=== PATIENT | male | born 1945 | race Caucasian/White ===

== ENCOUNTER → 2019-05-31 | Outpatient (CLI) | payer MEDICARE, BC, OTHER ==
--- NOTE | 2019-05-31 13:17 | 2DMMODE ---
[place] [address] 2 D/M-MODE ECHOCARDIOGRAM Name: JORDAN CASEY Room: [facility]#: [id number] Admission: 05/31/19 Attend Phys: Corrina Calle, Discharge: Date of : 47 Date of Service: 05/31/19 1316 Report #: [id number] THIS REPORT FOR: //name// APPROVED REPORT Study performed: 05/31/2019 10:05:24 EXAM: Comprehensive 2D, Doppler, and color-flow Echocardiogram Patient Location: Out-Patient BSA: 2.17 HR: 61 bpm BP: 98/52 mmHg Other Information Study Quality: Good Indications CAD Cardiomyopathy 2D Dimensions IVSd: 11.68 (7-11mm) LVOT Diam: 20.64 (18-24mm) LVDd: 57.21 mm PWd: 10.40 (7-11mm) Ascending Ao: 35.16 (22-36mm) LVDs: 42.87 (25-40mm) Aortic Root: 30.53 mm Volumes Left Atrial Volume (Systole) LA ESV Index: 35.30 mL/m2 Aortic Valve AoV Peak Brock.: 1.28 m/s AO Peak Gr.: 6.59 mmHg LVOT Max P.04 mmHg AO Mean Gr.: 4.08 mmHg LVOT Mean P.87 mmHg LVOT Max V: 1.01 m/s AO V2 VTI: 34.02 cm LVOT Mean V: 0.62 m/s LATRELL (VTI): 2.34 cm2 LVOT V1 VTI: 23.81 cm Mitral Valve E/A Ratio: 2.10 MV Decel. Time: 343.94 ms MV E Max Brock.: 0.60 m/s MV PHT: 99.74 [place] [address] 2 D/M-MODE ECHOCARDIOGRAM Name: JORDAN CASEY Room: [facility]#: [id number] Admission: 05/31/19 Attend Phys: Corrina Calle, Discharge: Date of : 47 Date of Service: 05/31/19 1316 Report #: [id number] MVA (PHT): 2.21 cm2 TDI E/Lateral E': 5.00 E/Medial E': 8.57 Medial E' Brock.: 0.07 m/s Lateral E' Brock.: 0.12 m/s Pulmonary Valve PV Peak Brock.: 1.02 m/s PV Peak Gr.: 4.17 mmHg Tricuspid Valve RAP Estimate: 5.00 mmHg TR Peak Gr.: 24.79 mmHg RVSP: 29.79 mmHg PA Pressure: 29.79 mmHg Left Ventricle Left ventricle is mildly dilated. There is normal left ventricular wall thickness. Left ventricular systolic function is moderately decreased. LVEF is 35%. The left ventricular diastolic function is normal. Right Ventricle The right ventricle is normal size. The right ventricular systolic function is normal. Atria The left atrium size is normal. The right atrium size is normal. Aortic Valve The aortic valve is normal in structure. No aortic regurgitation is present. There is no aortic valvular stenosis. Mitral Valve The mitral valve is normal in structure. Mild mitral regurgitation. No evidence of mitral valve stenosis. Tricuspid Valve The tricuspid valve is normal in structure. Mild tricuspid regurgitation. Pulmonic Valve The pulmonary valve is normal in structure. There is no pulmonic valvular regurgitation[place] [address] 2 D/M-MODE ECHOCARDIOGRAM Name: JORDAN CASEY Room: [facility]#: [id number] Admission: 05/31/19 Attend Phys: Corrina Calle, Discharge: Date of : 47 Date of Service: 05/31/19 1316 Report #: [id number] The aortic root is normal in size. IVC is normal in size and collapses >50% with inspiration. Pericardium There is no pericardial effusion. <Conclusion> Left ventricle is mildly dilated. There is normal left ventricular wall thickness. Left ventricular systolic function is moderately decreased. LVEF is 35%. The left ventricular diastolic function is normal. The right ventricle is normal size. The left atrium size is normal. The aortic valve is normal in structure. The mitral valve is normal in structure. Mild mitral regurgitation. The tricuspid valve is normal in structure. Mild tricuspid regurgitation. IVC is normal in size and collapses >50% with inspiration. <ELECTRONICALLY SIGNED> By: Gómez Kincaid MD, [facility] 05/31/19 1316 1316 1316 Gómez Kincaid MD, FACC /INF
== END ==
LOC: M.CRD 05-13 14:12
DX: I08.1 Rheumatic disorders of both mitral and tricuspid valves (principal); I25.10 Atherosclerotic heart disease of native coronary artery without angina pectoris; I25.5 Ischemic cardiomyopathy; I50.22 Chronic systolic (congestive) heart failure; I49.3 Ventricular premature depolarization

== ENCOUNTER → 2019-06-18 | Outpatient (CLI) | payer BC, MEDICARE, OTHER ==
--- NOTE | 2019-06-18 17:20 | CARDNUC ---
[place] [address] CARDIAC NUCLEAR IMAGING REPORT Name: JORDAN CASEY Room: [facility]#: [id number] Admission: 06/18/19 Attend Phys: Pedro Green, Discharge: Date of : 47 Date of Service: 06/18/19 1719 Report #: [id number] THIS REPORT FOR: //name// APPROVED REPORT Imaging Protocol: Rest Tc-99m/Stress Tc-99m 1 day Study performed: 06/18/2019 13:27:15 Indication: Dyspnea Patient Location: Out-Patient Stress Tech: Annemarie Callahan Stress Nurse: Susie Canchola RN NM Tech:SHRUTI Michael Ht: 5 ft 10 in Wt: 212 lbs BSA: 2.14 m2 BMI: 30.41 Medical History Medical History: CHF, ICM Medications: ASA, statin, coreg, zetia, lasix, NTG, entresto, aldactone Allergies: NKDA Cardiac Risk Factors: CAD; AGE, HLP, HTN Previous Cardiac Procedures: CABG Meds Held (24 hrs): Coreg Resting Data Rest SPECT myocardial perfusion imaging was performed in supine position 30 minutes following the intravenous injection of 10.4 mCi of Tc-99m Sestamibi. Time of rest injection: 1210 Date: 06/18/2019 The images were gated to evaluate regional wall motion and calculate left ventricular ejection fraction. Administration Route: IV Administration Site: Left AC Pharmacologic Stress Pharmacologic stress test was performed by injecting Regadenoson 0.4 mg IV push over 10-15 seconds immediately followed by the intravenous injection of 34.4 mCi of Tc-99m Sestamibi. Time of stress injection: 1325 Date: 06/18/2019 Administration Route: IV Administration Site: Left AC Gated Stress SPECT was performed 40 minutes [place] [address] CARDIAC NUCLEAR IMAGING REPORT Name: JORDAN CASEY Room: [facility]#: [id number] Admission: 06/18/19 Attend Phys: Pedro Green, Discharge: Date of : 47 Date of Service: 06/18/19 1719 Report #: [id number] The images were gated to evaluate regional wall motion and calculate left ventricular ejection fraction. Stress only was performed in the Supine position. Stress Test Details Stress Test: Pharmacologic stress testing performed using 0.4 mg of regadenoson per 5 mL given IV over 10 seconds. HR Max Heart Rate (APMHR): 147 bpm Resting HR: 52 bpm Target HR (85% APMHR): 124 bpm Max HR Achieved: 77 bpm % of APMHR: 52 HR response to stress: 71 BP Resting BP: 108/68 mmHg Max BP: 110/55 mmHg Recovery BP: 114/62 mmHg ECG Resting ECG: Sinus Rhythm Stress ECG: Sinus Rhythm ST Change: None Arrhythmia: VPC's Recovery ECG: Sinus Rhythm Recovery ST Change: None Recovery Arrhythmia: VPC's Clinical Reason for Termination: Completed protocol Stress Symptoms: none The patient tolerated Lexiscan infusion without significant symptoms. Stress ECG Conclusion The baseline EKG show sinus rhythm with nonspecific intraventricular conduction delay. There were no significant ST segment changes noted. EKGs obtained during and post Amber infusion show sinus rhythm with no significant ST segment depression when compared to baseline. There were occasional unifocal premature ventricular contractions noted. Study Quality Study: Good Artifact: [place] [address] CARDIAC NUCLEAR IMAGING REPORT Name: JORDAN CASEY Room: [facility]#: [id number] Admission: 06/18/19 Attend Phys: Pedro Green, Discharge: Date of : 47 Date of Service: 06/18/19 1719 Report #: [id number] At rest, the left ventricular ejection fraction was 46%.. Post stress, the left ventricular ejection was 32%.. TID = 1.01. Perfusion Perfusion images show fixed defects involving the basal to distal inferior and inferolateral wall as well as the distal and apical anterolateral wall. There is a moderate size mild intensity reversible defect involving the lateral wall. Wall Motion The basal portion of the inferior wall appears akinetic. The the distal to apical portion the anterolateral, anterior and anteroseptal wall appears akinetic. Nuclear Conclusion ECG Findings: negative for ischemia Clinical Findings: negative for ischemia Nuclear Findings: positive for ischemia Left Ventricular Function: abnormal Risk Study: high Myocardial perfusion images suggest prior infarct involving the distal to apical anterior anterolateral anteroseptal wall as well as the basal inferior wall. There appears to be reasonable ischemia involving the lateral wall. Left jugular systolic function. Moderate to severely decreased with wall motion abnormalities as outlined above. This is a high risk study. <Conclusion> The baseline EKG show sinus rhythm with nonspecific intraventricular conduction delay. There were no significant ST segment changes noted. EKGs obtained during and post Amber infusion show sinus rhythm with no significant ST segment depression when compared to baseline. There were occasional unifocal premature ventricular contractions noted. <ELECTRONICALLY SIGNED> By: North Hernandez MD, FACC 06/18/19 171 18 18 North Hernandez MD, FACC /INF
== END ==
LOC: M.NUC 06-09 16:34
DX: I25.10 Atherosclerotic heart disease of native coronary artery without angina pectoris (principal); I11.0 Hypertensive heart disease with heart failure; I50.9 Heart failure, unspecified; E78.5 Hyperlipidemia, unspecified; Z95.1 Presence of aortocoronary bypass graft

== ENCOUNTER 2019-07-01 10:15 | Observation (INO) | payer BC, MEDICARE, OTHER ==
[~2019-07-01] VITALS: Ht 177.8 cm; Wt 95.3 kg
[2019-07-01] VITALS (8 sets, daily range): BP systolic 94–113; BP diastolic 45–62
[~2019-07-01 10:15] MED LIST: ASPIR 8181 MG PO; COREG25 MG PO; ENTRESTO 97 MG1 EACH PO; LASIX 80 MG TAB80 MG PO; LIPITOR40 MG PO; NITROGLYCERIN0.4 MG SUBLING; SPIRONOLACTONE25 M1 PO; VOLTAREN GEL 1100 G2 TOP; ZETIA10 MG PO
[2019-07-01 10:52] LABS: HEMATOCRIT 35.9 % (42.0-52.0); HEMOGLOBIN 12.1 gm/dL (14.0-18.0); MCH 30.5 pg (26.0-34.0); MCHC 33.7 g/dL (28.0-37.0); MCV 90.7 fL (80.0-100.0); MPV 8.2 fl. (7.2-11.1); RBC 3.96 mil/uL (4.50-6.00); RDW-CV 14.7 % (10.5-14.5)
[2019-07-01 10:59] LABS: ANION GAP 6 mmol/L (7-16); BUN 29 mg/dL (7-18); CALCIUM 8.9 mg/dL (8.5-10.1); CHLORIDE 104 mmol/L (98-107); CO2 28 mmol/L (21-32); CREATININE 1.1 mg/dL (0.6-1.3); GLUCOSE 104 mg/dL (70-99); POTASSIUM 4.1 mmol/L (3.5-5.1); SERUM ASSESSMENT Clear; SODIUM 138 mmol/L (136-145)
[2019-07-01 11:02] LABS: APTT 29.9 Seconds (25.0-31.3); PROTIME 10.6 Seconds (9.20-11.50)
[2019-07-01 11:03] LABS: CHOLESTEROL 105 mg/dL (<200); HDL CHOLESTEROL 39 mg/dL (>40); LDL CHOLESTEROL 42 mg/dL (<100); TC:HDL 2.7 Ratio (Not establshd); TRIGLYCERIDE 122 mg/dL (<150); VLDL 24 mg/dL (<40)
[2019-07-02] VITALS: BP 95/39
--- NOTE | 2019-07-02 03:17 | NUR ---
ASSUMED CARE OF PT AT 1900. PT IS ALERT AND ORIENTED. VSS. PERRLA. NO COMPLAINTS OF PAIN. PT IS IN SINUS RYTHM ON THE TELEMETRY. PT IS RESTING COMFORTABLY IN BED. RESPIRATIONS ARE EVEN AND NONLABORED. WILL CONTINUE TO MONITOR PT.
[2019-07-02 04:00] VITALS: BP 112/51
[2019-07-02 05:04] LABS: HEMOGLOBIN 11.4 gm/dL (14.0-18.0); MCH 29.9 pg (26.0-34.0); MCHC 32.7 g/dL (28.0-37.0); MCV 91.4 fL (80.0-100.0); MPV 8.5 fl. (7.2-11.1); RBC 3.83 mil/uL (4.50-6.00); RDW-CV 15.1 % (10.5-14.5); WBC 7.3 thou/uL (4.0-11.0)
[2019-07-02 05:29] LABS: CALCIUM 8.1 mg/dL (8.5-10.1); POTASSIUM 3.8 mmol/L (3.5-5.1); TROPONIN-I LEVEL 0.15 ng/mL (<0.06)
[2019-07-02 08:00] VITALS: BP 115/53
[2019-07-02 10:45] VITALS: BP 115/53
--- NOTE | 2019-07-02 11:10 | EKG ---
[place] [address] ELECTROCARDIOGRAM REPORT Name: JORDAN CASEY Room: [address] M.R.#: [id number] Admission: 07/01/19 Attend Phys: North Hernandez MD Discharge: Date of : 47 Report #: [id number] THIS REPORT FOR: //name// [facility] Test Date: 2019-07-01 Test Time: 10:49:29 Pat Name: JORDAN CASEY Department: Room: [facility] Gender: M Engine Lathe Set Up Operator: : 1945 Requested By: North Hernandez Order Number: [id number] Mello MD: Guilherme Pena Measurements Intervals [place] Rate: 52 P: 24 [place]: 184 QRS: -46 QRSD: 140 T: 89 QT: 481 QTc: 448 Interpretive Statements Sinus bradycardia Multiple ventricular premature complexes Left bundle branch block No previous ECG available for comparison Electronically Signed On 07-02-2019 11:09:51 CDT by Guilherme Pena [email or web address] <ELECTRONICALLY SIGNED> By: Guilherme Pena MD, [facility] 07/02/19 1109 D: 08/9 Guilherme Pena MD, FACC /EPI
--- NOTE | 2019-07-02 11:16 | EKG ---
[place] [address] ELECTROCARDIOGRAM REPORT Name: JACINTOJORDAN CHAYA Room: [address] M.R.#: [id number] Admission: 07/01/19 Attend Phys: North Hernandez MD Discharge: Date of : 47 Report #: [id number] THIS REPORT FOR: //name// [facility] Test Date: 2019-07-01 Test Time: 13:55:15 Pat Name: JORDAN CASEY Department: Room: [facility] Gender: M Sales Marketing Director: : 1945 Requested By: Guilherme Pena Order Number: [id number] Mello MD: Guilherme Pena Measurements Intervals [place] Rate: 55 P: 34 [place]: 190 QRS: -49 QRSD: 143 T: 80 QT: 477 QTc: 457 Interpretive Statements Sinus rhythm Left bundle branch block Electronically Signed On 07-02-2019 11:16:50 CDT by Guilherem Pena [email or web address] <ELECTRONICALLY SIGNED> By: Guilherme Pena MD, [facility] 07/02/19 1116 1355 1355 Guilherme Pena MD, FACC /EPI
[2019-07-02 12:23] VITALS: BP 95/46
[2019-07-02 15:49] VITALS: BP 91/48
[2019-07-02] MEDS ORDERED: PLAVIX 75 MG TA75 M1 PO (18:10)
--- NOTE | 2019-07-03 13:23 | CARD ---
[address] [address] CARDIAC CATH REPORT Name: JORDAN CASEY Room: [address] [place]#: [id number] Admission: 07/01/19 Attend Phys: North Hernandez MD Discharge: 07/02/19 Date of : 47 Report #: [id number] THIS REPORT FOR: //name// APPROVED REPORT Study performed: 07/01/2019 10:40:45 Patient Details Patient Status: Out-Patient Room #: The patient is a 74 year-old male Event Personnel North Hernandez Ssn/Ssbn Weapons Equipment Operator, Cristal Camejo RN Engineering Psychologist, Dalton Ga, Pippa Carolina RTR Monitor, Reena Acevedo RTR Monitor, Guilherme Pena Passenger Barge Master Procedures Performed Art Access - R femoral artery* Left Heart Cath w/or w/o Coronaries [id number] [facility] [address] w/wo Plasty Single CIRC [id number] Indication Dyspnea, Cardiomyopathy Risk Factors Hypercholesterolemia, Coronary Artery DiseaseHypertension Previous Procedures/Diagnoses Previous CABG Admission/Lab Medications/Medications given during procedure Glycoprotein IllbIlla Inhibitors, Heparin Unfract., Lidocaine Subcut 14 ml, Fentanyl IV 25 mcg, Midazolam (Versed) IV 2 mg, Heparin IV 7000 units, Aggrastat IV bolus 10 ml, Plavix PO 600 mg Procedure Narrative The patient was brought electively to the Cardiac Catheterization Laboratory and was prepped and draped in a sterile manner. The right femoral was infiltrated with 1% Lidocaine subcutaneous anesthesia. A 6f Ultimum sheath was inserted into the right femoral artery. Coronary angiography was performed using coronary diagnostic catheters. The right coronary system was accessed and visualized with a 6F JR4 catheter. The left coronary system was accessed and visualized with a 6F JL4 catheter. The [place] [address] CARDIAC CATH REPORT Name: CASEYJORDAN CHAYA Room: [address] M.Marilyn.#: [id number] Admission: 07/01/19 Attend Phys: North Hernandez MD Discharge: 07/02/19 Date of : 47 Report #: [id number] and visualized with a 6F Pigtail catheter. Left ventricular/Aortic Valve gradient assessed . Left ventriculogram was performed in CORADO projection. Closure device was deployed with a 6 Fr Angioseal STS 6Fr. The patient tolerated the procedure well and there were no complications associated with the procedure. There was no hematoma. The GOLDSMITH was accessed and visualized with a 6F IM catheter. A 6F MPA and 6F LCB catheters were also used to visualize the SVG. Intraoperative Conscious Sedation Sedation start time: 11:38 Case end Time: 13:16 Fentanyl 25 mcg Versed 2 mg Fluoro Time: 18.4 minutes Dose: DAP 377270 cGycm2 2707 mGy Contrast Type and Amount: Omnipaque 280 ml Eyak Artery Percent Stenosis GOLDSMITH graft to the mid LAD is widely patent with good distal anastomoses. Radial artery graft to the posterior lateral LV branch of the right coronary artery is widely patent with good proximal and distal anastomoses. Diagnostic Cath Left Main Mildly plaqued. LAD 95% stenosed proximally. The mid and distal vessel filled by GOLDSMITH graft. Diagonal 1 Minimally plaqued. Fills retrogradely by GOLDSMITH graft. Circumflex 70% narrowing in the midportion. Diffusely moderately plaqued distally. OM1 Minimally plaqued. Moderate size and branched. OM2 Small in size and diffusely plaqued. Right Coronary Totally occluded proximally. The distal vessel fills retrogradely by radial arterial graft. R PDA Minimally plaqued and filled by a radial artery graft and retrograde fashion. RPLV Minimally plaqued and filled by radial artery graft. Ramus Large branched vessel that is minimally plaqued with marginal distribution. Left Ventriculography The left ventricle is moderately dilated in size with diminished [facility] [address] [place] [address] CARDIAC CATH REPORT Name: JORDAN CASEY Room: [address] M.R.#: [id number] Admission: 07/01/19 Attend Phys: North Hernandez MD Discharge: 07/02/19 Date of : 47 Report #: [id number] contractility. The left ventricular ejection fraction is estimated to be 30-35%. Left ventricular wall motion abnormalities are present. Hemodynamics The aortic pressure is 97/37 mmHg with a mean of 56 mmHg. The left ventricular pressure is 90/10 mmHg with a mean of mmHg. The left ventricular end diastolic pressure is 22 mmHg. There was no gradient across the aortic valve upon pullback. Pullback from the left ventricle to the aorta revealed no gradient across the aortic valve. PCI Technique Lesion Anticoagulation was achieved with Heparin 7000 units. bolus of iv aggrastat given Percutaneous coronary intervention was performed on the mid circumflex artery segment. The lesion stenosis prior to intervention was 70% with KRISTY 3 flow. A 6F XB 4.0 Guide Catheter was used to engage the lm ostium. A BMW 190cm Interventional Guidewire was used to cross the lesion. BALLOON DILATION A Balloon catheter Trek RX 2.5 X 8 was inserted and inflated up to 8.00atm for 11seconds. Repeat angiography revealed the following post-dilatation results: 40% stenosis. STENT DEPLOYMENT A drug-eluting stent Xience Teetee 2.16P56uf was inserted and inflated up to 8.00atm for 16seconds. Repeat angiography revealed the following post-stent deployment results: 0% stenosis. Additional Inflation: 11.00atm for 17seconds. Additional Inflation: 12.00atm for 19seconds. Final angiography reveals 0 % stenosis with KRISTY 3 flow. Conclusion 1. successful placement of a drug eluting stent in the mid circumflex artery. 2. Moderate to severe LV systolic dysfunction consistent with ischemic cardiomyopathy. 3. Elevated left ventricular end-diastolic pressure consistent with acute on chronic diastolic heart failure. Recommendations 1. Continue dual antiplatelet therapy for one year. 2. Continue [place] [address] CARDIAC CATH REPORT Name: MARIEL CASEYIP CHAYA Room: [place] [address] [place]nard#: [id number] Admission: 07/01/19 Attend Phys: North Hernandez MD Discharge: 07/02/19 Date of : 47 Report #: [id number] Medications Administered Clopidogrel Diagnostic Cath Approved by: North Hernandez MD Date/Time: <ELECTRONICALLY SIGNED> By: Guilherme Pena MD, FACC 07/03/19 1323 1323 1323Dyazmin Pena MD, FACC /INF
== END 2019-07-02 18:41 | disposition home or self-care (01) ==
LOC: M.CL 10:15 → M.2W 17:24 → M.TBA-ER 17:24 → M.CL 17:24 → M.2W 17:24
PROVIDERS: ADMIT Internal Medicine Cardiovascular Disease
DX: I25.10 Atherosclerotic heart disease of native coronary artery without angina pectoris (principal); I42.9 Cardiomyopathy, unspecified; I10 Essential (primary) hypertension; E78.00 Pure hypercholesterolemia, unspecified

== ENCOUNTER → 2019-08-03 | Outpatient (CLI) | payer BC, MEDICARE ==
[~2019-08-03] MED LIST changes: +PLAVIX 75 MG TA75 M1 PO
--- NOTE | 2019-08-17 08:02 | PF ---
[address] [address] PULMONARY FUNCTION REPORT Name: JORDAN CASEY Room: [facility]#: [id number] Admission: 08/03/19 Attend Phys: Ritchie Nobles Discharge: Date of : 47 Report #: [id number] THIS REPORT FOR: //name// CC: Magdiel Kat David Walsh DATE OF SERVICE: 08/03/2019 REQUESTING PHYSICIAN: Magdiel Tanner M.D. Spirometry reveals a normal FEV1 at 2.90 which was 92% of predicted. FEV1/FVC ratio was 76%. Mid flows are normal. Lung volumes reveal TLC to be mildly diminished at 71% of predicted. No significant change was seen after inhaled bronchodilator. Lung volumes by plethysmography do reveal mild decrease in diffusion capacity. IMPRESSION: There is no evidence of an obstructive process. May have very minimal restrictive process noted. Mild decrease in diffusion capacity which was normal when corrected for alveolar volume. <ELECTRONICALLY SIGNED> By: Cindi Oglesby MD 08/17/19 0802 1025 1136Cindi Oglesby MD /nt
== END ==
LOC: M.PUL 11:00
DX: Z79.899 Other long term (current) drug therapy (principal)

== ENCOUNTER 2019-08-04 16:32 | Emergency (ER) | payer BC, MEDICARE ==
[~2019-08-04] VITALS: Ht 177.8 cm; Wt 95.3 kg
[2019-08-04 16:56] LABS: ABSOLUTE BASOPHILS 0.1 thou/uL (0.0-0.2); ABSOLUTE EOSINOPHILS 0.1 thou/uL (0.0-0.7); ABSOLUTE LYMPHOCYTES 1.4 thou/uL (0.8-5.3); ABSOLUTE MONOCYTES 0.5 thou/uL (0.0-1.2); EOSINOPHILS 2.9 %; HEMATOCRIT 34.6 % (42.0-52.0); LYMPHOCYTES 26.3 %; MCH 31.1 pg (26.0-34.0); MCHC 34.7 g/dL (28.0-37.0); MCV 89.6 fL (80.0-100.0); MONOCYTES 10.5 %; MPV 8.1 fl. (7.2-11.1); NUCLEATED RBCS 0 /100WBC; PLATELET COUNT* 192 thou/uL (150-400); POLYS 59.3 %; RBC 3.86 mil/uL (4.50-6.00); RDW-CV 15.5 % (10.5-14.5); WBC 5.1 thou/uL (4.0-11.0)
[2019-08-04 17:09] LABS: CALCIUM 9.2 mg/dL (8.5-10.1); CREATININE 1.2 mg/dL (0.6-1.3); POTASSIUM 4.4 mmol/L (3.5-5.1)
[2019-08-04 17:14] LABS: ALBUMIN 3.7 g/dL (3.4-5.0); TOTAL BILIRUBIN 0.7 mg/dL (<0.1-1.0); TOTAL PROTEIN 7.3 g/dL (6.4-8.2)
[2019-08-04 18:20] LABS: URINE BILIRUBIN NEGATIVE (Negative); URINE BLOOD NEGATIVE (Negative); URINE CLARITY CLEAR; URINE COLOR YELLOW; URINE GLUCOSE-RANDOM NEGATIVE (Negative); URINE KETONES NEGATIVE (Negative); URINE LEUKOCYTES-REFLEX NEGATIVE (Negative); URINE NITRITE-REFLEX NEGATIVE (Negative); URINE PROTEIN NEGATIVE (Negative); URINE UROBILINOGEN 0.2 E.U./dl (0.2-1.0)
[2019-08-04 18:33] VITALS: BP 114/53
--- NOTE | 2019-08-05 17:17 | EKG ---
[place] [address] ELECTROCARDIOGRAM REPORT Name: JACINTOJORDANOMAR FULLERW Room: [facility]#: [id number] Admission: 08/04/19 Attend Phys: Discharge: 08/04/19 Date of : 47 Report #: [id number] THIS REPORT FOR: //name// [facility] ED Test Date: 2019-08-04 Test Time: 16:28:46 Pat Name: JORDAN CAESY Department: Room: Gender: M Anesthesiology Fellow: PRIYA : 1945 Requested By: Sara Fowler Order Number: [id number] MD: North Hernandez Measurements Intervals [place] Rate: 46 P: 39 [place]: 180 QRS: -42 QRSD: 145 T: 91 QT: 509 QTc: 446 Interpretive Statements Sinus rhythm Ventricular bigeminy Left bundle branch block No previous ECG available for comparison Electronically Signed On 08-05-2019 17:17:30 CDT by North Hernandez [email or web address] <ELECTRONICALLY SIGNED> By: North Hernandez MD, [facility] 08/05/19 1717 1628 1628 North Hernandez MD, FACC /EPI
== END 2019-08-04 18:36 | disposition home or self-care (01) ==
LOC: M.ERS 16:32
PROVIDERS: Personal Emergency Response Attendant
DX: R00.8 Other abnormalities of heart beat (principal); Z90.49 Acquired absence of other specified parts of digestive tract; Z87.442 Personal history of urinary calculi

== ENCOUNTER 2021-06-06 19:36 | Emergency (ER) | payer BC, MEDICARE ==
[~2021-06-06] VITALS: Ht 177.8 cm; Wt 97.5 kg
[~2021-06-06 19:36] MED LIST changes: +AMIODARONE HCL400 MG PO
[2021-06-06] MEDS ORDERED: NORCO5 PO (21:51)
[2021-06-06 22:04] VITALS: BP 164/73
--- NOTE | 2021-06-07 11:41 | EKG ---
[place] [address] ELECTROCARDIOGRAM REPORT Name: JORDAN CASEY Room: [facility]#: [id number] Admission: 06/06/21 Attend Phys: Discharge: 06/06/21 Date of : 47 Date of Service: 06/06/211944 Report #: [id number] THIS REPORT FOR: //name// [facility] ED Test Date: 2021-06-06 Test Time: 19:45:16 Pat Name: JORDAN CASEY Department: Room: Gender: Instrument/Control Technician: : 1945 Requested By: Shira Mann Order Number: [id number] MD: Hubert Gomez Measurements Intervals [place] Rate: 63 P: 25 [place]: 168 QRS: 85 QRSD: 131 T: 62 QT: 502 QTc: 514 Interpretive Statements Atrial-sensed ventricular-paced rhythm No further analysis attempted due to paced rhythm Compared to ECG 08/04/2019 16:28:46 Sinus rhythm no longer present Ventricular premature complex(es) no longer present Left bundle-branch block no longer present Electronically Signed On 06-07-2021 11:40:52 CDT by Hubert Gomez [email or web address] <ELECTRONICALLY SIGNED> By: Billy Gomez MD, [facility] 06/07/21 1140 44 44 Billy Gomez MD, [facility] /EPI
== END 2021-06-06 22:05 | disposition home or self-care (01) ==
LOC: M.ERS 19:36
DX: S00.81XA Abrasion of other part of head, initial encounter (principal); S40.212A Abrasion of left shoulder, initial encounter; R07.89 Other chest pain; M25.552 Pain in left hip; I10 Essential (primary) hypertension; Z79.82 Long term (current) use of aspirin; Z79.899 Other long term (current) drug therapy; Z87.442 Personal history of urinary calculi; W18.30XA Fall on same level, unspecified, initial encounter; Y93.89 Activity, other specified; Y92.89 Other specified places as the place of occurrence of the external cause; Y99.9 Unspecified external cause status